=== PATIENT | male | born 1960 | race Caucasian/White ===

== ENCOUNTER 2020-07-23 13:59 | Emergency (ER) | payer OTHER ==
[~2020-07-23] VITALS: Ht 180.3 cm; Wt 59.0 kg
[2020-07-23 14:08] VITALS: BP 138/75
[2020-07-23 14:24] LABS: ABSOLUTE NEUTROPHILS 3.1 thou/uL (1.4-8.2); BASOPHILS 1.2 % (0.0-2.0); EOSINOPHILS 0.8 % (0.0-3.0); HEMATOCRIT 41.4 % (42.0-52.0); HEMOGLOBIN 13.9 gm/dL (14.0-18.0); MCH 31.6 pg (26.0-34.0); MCHC 33.7 g/dL (28.0-37.0); MCV 93.9 fL (80.0-100.0); MONOCYTES 5.2 % (1.0-8.0); PLATELET COUNT 167 thou/uL (150-400); POLYS 70.8 % (36.0-66.0); RBC 4.41 mil/uL (4.50-6.00); RDW 13.6 % (10.5-14.5); WBC 4.4 thou/uL (4.0-11.0)
[2020-07-23 14:28] LABS: AMP/METHAMP Negative (Negative); BARBITURATES Negative (Negative); BENZODIAZEPINES Negative (Negative); COCAINE Negative (Negative); METHADONE Negative (Negative); OPIATES Negative (Negative); PCP Negative (Negative)
[2020-07-23 14:36] LABS: ANION GAP 11 mmol/L (7-16); BUN 17 mg/dL (7-18); CHLORIDE 104 mmol/L (98-107); CO2 26 mmol/L (21-32); GLUCOSE 202 mg/dL (74-106); SODIUM 141 mmol/L (136-145)
[2020-07-23 14:42] LABS: DIRECT BILIRUBIN 0.1 mg/dL (<0.1-0.2); SALICYLATE < 2.8 mg/dL (2.8-20.0); SGOT 16 U/L (15-37); SGPT 16 U/L (30-65); TOTAL BILIRUBIN 0.4 mg/dL (0.2-1.0); TOTAL PROTEIN 7.7 g/dL (6.4-8.2)
[2020-07-24] MEDS ORDERED: REXULTI0.25 MG PO (10:22)
[2020-07-24] MEDS ORDERED: BENZTROPINE ME0.5 MG PO (10:23)
[2020-07-24] MEDS ORDERED: CLONAZEPAM 0.50.5 M1 PO (10:24)
[2020-07-24] MEDS ORDERED: XARELTO20 MG PO (10:25)
[2020-07-24] MEDS ORDERED: REMERON 30 MG T30 M1 PO (10:25)
[2020-07-24] MEDS ORDERED: LOVASTATIN 20 M20 MG PO (10:26)
[2020-07-24] MEDS ORDERED: LISINOPRIL2.5 MG PO (10:26)
--- NOTE | 2020-07-24 10:27 | NUR ---
SKYLAR (BROTHER) STATES APPLICATIONS PACKAGER FROM [facility] WAS GOING TO SEND OVER A MEDICATION LIST. SERGEIAURY PROVIDED MED LIST OVER THE PHONE THIS MORNING. TO THIS RN. WILL WAIT FOR CONFIRMATION LIST WELL.
[2020-07-24 17:38] VITALS: BP 119/70
--- NOTE | 2020-07-24 19:10 | NUR ---
PATIENT ADMITTED TO [facility] UNIT ROOM 518B VIA CART. PATIENT TRANSFERED TO BED AMB WITHOUT ASSISTANCE. PATIENT IN HOSPITAL GOWN. VS BP-109/77 P 47-50 T-98.2 O2 SAT 97%. PATIENT WAS IN ED FOR 27 HRS AND 40 MIN WAITING FOR COVID RESULTS. COVID NEGATIVE. PATIENT IS FROM HOME, LIVES WITH 90 YR OLD MOTHER. PATIENT BROUGHT TO ED FOR INCREASED ANXIETY, HALLUCINATION, DEPRESSION, NOT EATING AND SI STATING HE WISHED HE GOT COVID AND . IT WAS REPORTED TO ME THAT PT HAS NO PLAN FOR SUICIDE. PATIENT HAS A MEDICAL HX OF HTN, SCHIZOPHRENIA AND DM II. PATIENT SPEAKS CLEAR AND NO DIFFICULTIES ANSWERING QUESTIONS. PATIENT DENIES SI/HI AND HALLUCINATIONS STATES HAS NOT HAS HALLUCINATIONS X30 YEARS. PATIENT DENIES MEDICAL HX OF SCHIZOPHRENIA AND DM. PATIENT LS CLEAR, AMB ROUND AND SOFT, BS ACTIVE. NO EDEMA NOTED. NO C/O PAIN. PATIENT NOTED WITH OLD BRUISES TO LEGS AND ARMS. PATIENT HAS GLASSES ON. MEDICATION GIVEN WHOLE WITH H2O WITHOUT DIFFICULTY. REPORT GIVEN TO ONCOMING SHIFT.
[2020-07-24 19:40] VITALS: BP 97/64
--- NOTE | 2020-07-25 05:20 | NUR ---
Assumed care of pt @ 1900. Pt calm et cooperative this shift. Took medications whole without difficulty. Ambulates ad shante with steady gait. Isolated in room most of shift. Displays confusion as to why he is here et how he can get "downstairs". VSWNL. Health assessment with no abnormalities noted at present time. Denies SI/HI at present time. Currently sitting on couch in dayroom with eyes open. Will continue to monitor per protocol.
[2020-07-25 08:34] VITALS: BP 105/70
--- NOTE | 2020-07-25 13:01 | NUR ---
PATIENT CARE ASSUMED AT 0700 - AMBULATORY AND MAKES NEEDS KNOWN. WAS CONCERNED WTIH BELONGINGS THIS MORNING HE HAD COME IN WITH. STAFF LOCATED IN ER AND HAD BROUGHT TO UNIT. ALSO WANTED TO BE CERTAIN WAS ON HIS PSYCHE MEDICATIONS. PATIENT ANXIOUS AND NEEDS ALOT OF REASSURANCE. AMBULATES INDEPENDENTLY AND GAIT STEADY - DENIES ANY S/I - COMPLIANT WITH MEDICATIONS.
== END 2020-07-23 17:45 ==
LOC: ER 13:59 → SBH 17:45 → ER 07-24 17:39 → SBH 07-24 17:39
PROVIDERS: Nurse Practitioner
DX: R45.851 Suicidal ideations (principal); I10 Essential (primary) hypertension; F41.0 Panic disorder [episodic paroxysmal anxiety]; Z86.718 Personal history of other venous thrombosis and embolism; Z86.711 Personal history of pulmonary embolism
CPT/HCPCS: 10880

== ENCOUNTER 2020-07-24 17:39 | Inpatient (IN) | payer OTHER ==
[~2020-07-24] VITALS: Ht 172.7 cm; Wt 62.1 kg
[~2020-07-24 17:39] MED LIST: BENZTROPINE ME0.5 MG PO; CLONAZEPAM 0.50.5 M1 PO; LISINOPRIL2.5 MG PO; LOVASTATIN 20 M20 MG PO; REMERON 30 MG T30 M1 PO; REXULTI0.25 MG PO; XARELTO20 MG PO
[2020-07-25 19:07] VITALS: BP 118/71
[2020-07-26 02:06] LABS: HIV ANTIBODY Non Reactive (Non Reactive)
--- NOTE | 2020-07-26 05:00 | NUR ---
Assumed care of pt @ 1900. Pt calm et cooperative this shift. Took medications whole without difficulty. Ambulates the halls ad shante with steady gait. VSWNL. Health assessment with no abnormalities noted at present time. Denies SI/HI at present time. Socialized with peers in dayroom until HS. Currently resting in bed with eyes open. Will continue to monitor per protocol.
[2020-07-26 07:10] VITALS: BP 147/101
--- NOTE | 2020-07-26 11:14 | NUR ---
PATIENT CARE ASSUMED AT 0700 - UP AT CHANGE OF SHIFT. ANXIOUS AND FIXATED ON MEDICATIONS AND RECEIVING ADEQUATE DOSAGES. DENIES ANY S/I - RATES DEPRESSION AND AXNIETY AT 03/30 - GOOD APPETITE. MAKES NEEDS KNOWN. AMBULATORY AND STEADY ON FEET.
[2020-07-26 19:41] VITALS: BP 95/60
--- NOTE | 2020-07-27 03:39 | NUR ---
Assumed care of pt @ 1900. Pt calm et cooperative this shift. Took medications whole without difficulty. Ambulates the halls ad shante with steady gait. VSWNL. Health assessment with no abnormalities noted at present time. Denies SI/HI at present time. Continues to wake from sleep cycle around 0400 for past few nocs. Becomes slightly agitated when unable to go back to sleep. Socializes with peers in dayroom until HS but tends to retire early around 0800. Currently resting in bed with eyes open. Will continue to monitor per protocol.
[2020-07-27 07:28] VITALS: BP 92/58
--- NOTE | 2020-07-27 09:30 | NUR ---
Assumed care for patient at 0700. out in dayroom. Pleasant and cooperative. eating breakfast in day room. Good appetite. Cooperative with assessments. Lungs sounds clear. No cough. Took medications without difficulty. Heart rate regular. BP at 92/58. Lisinopril held. Abdomen soft. Denies pain or discomfort. Euthymic. No agitation observed. Gait steady. Oriented.
--- NOTE | 2020-07-27 11:48 | H ---
[facility] [place] [address] HISTORY AND PHYSICAL Name: LYNN FOSS Room #: 518B-B ADM IN M.R.#: [id number] Admission: 07/24/20 Attend Phys: Kali Solorio DO Discharge: Date of : 56 Report #: [id number] THIS REPORT FOR: cc: ROSALIE - No family physician/PCP FAM - No family physician/PCP Kali Solorio DO ~ CC: Kali Solorio [facility] physician/PCP DATE OF SERVICE: 07/25/2020 INPATIENT PSYCHIATRIC EVALUATION ATTENDING PSYCHIATRIST: Kali Solorio DO. BALLPOINT PEN CARTRIDGE TESTER: Sonu Menchaca MD. REASON FOR ADMISSION: Alleged suicidal ideation. SOURCES OF INFORMATION: Interview with the patient, interview with his brother, Jesus Manuel. It should be noted Jesus Manuel's , Masha Foss was interested in remaining the [facility]. Her number is [phone]. We have not gotten records from [facility] where the patient was referred. HISTORY OF PRESENT ILLNESS: This is a 60-year-old male brought to the ED by his brother, Jesus Manuel. The patient had suicidal thoughts "ran across in his mind" prior to arrival, but did not formulate a plan to carry it out self-harm, denies ever having such thoughts before. Denies any symptoms of pain. Apparently, he had been in an appointment at [facility] on Tuesday and made the comment that he is just tired of doing this. About 2 weeks ago, he was seen in [facility] Emergency Room and discharged. The patient lives at his mother's home. His mother is 98 years old. His brother, Jesus Manuel, gives a history that around a month ago he was given a long-acting injection, but there has not been perceived cognitive improvement from that and the worsening continued ____ he did not know the name of it. The patient's social welfare research worker at [facility] is Marie Schuler. He also made comment on Tuesday that he wants things over, so it was a soft suicidal reference. The patient has a history of paranoid schizophrenia and his ____ PCR was negative. Serum alcohol was less than 10. Labs from the ER, sodium 141, potassium 4.0, chloride 104, bicarbonate 26, anion gap 11, BUN 17, creatinine 1.0, estimated GFR 76, glucose 202, calcium 9.0, total bilirubin 0.4, direct bilirubin 0.1, AST 16, ALT 16, alkaline phosphatase 75, total protein 7.7, albumin 4.0. White count 4.4, H and H 13.9 and 41.4, platelet count 167. UDS negative. Salicylate is negative. Acetaminophen negative, interestingly was negative for benzodiazepines and is prescribed as [address] [address] HISTORY AND PHYSICAL Name: LYNN FOSS Room #: 518B-B ADM IN M.R.#: [id number] Admission: 07/24/20 Attend Phys: Kali Solorio DO Discharge: Date of : 56 Report #: [id number]. ADDITIONAL HISTORY: [facility] Mental Status Examination was 19/30. Geriatric Depression scale was +3/15, so not showing significant clinical depression. The patient reported psychiatric history of long-standing schizophrenia in the 1980s. He does not remember why he was transported to the ER, interestingly. He reports he is medication compliant. He likes helping his mother at home. She actually takes care of his medication. Reports he becomes some irritable at times with his mother when she asks him to do things around the house. He has lived for 60 years with her, reports anxiety /. Denies panic attacks. Denies depression. Denies SI. Denies HI. Reports auditory hallucinations of having conversations. Denies command hallucinations. He denies hearing voices today when I saw him. [place] [facility] PAST MEDICAL HISTORY: Hypertension, hyperlipidemia, history of four blood clots in bilateral lower extremities, history of PE. Mother has hyperlipidemia. Dad in his 60s with lung cancer; 2 brothers, 1 at age 70, had ____ diabetes, heart condition. Another brother, obesity, diabetes. The patient had psychiatric inpatient treatment one time, [id number] range. States he gets medications through [facility]. He has been on long-term injectable, does not remember which medications. SOCIAL HISTORY: Grew up in [place], [place]. Lived with his parents. Denies abuse, states reportedly he has not been working for years. High school graduate. Denies marriage. No children. Denies service. 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 Denies any other issues. Alcohol, drank once in a job and blacked out and then he gave it up. Illicit substances, marijuana use in his 20s. VITAL SIGNS: Today, temperature 98.1, pulse 104, BP 105/70, O2 sat 96%. MENTAL STATUS EXAMINATION: This is a well-developed, frail, somewhat ill-appearing having a marked lumbar lordosis. somewhat disheveled. Attention limited. Concentration limited. Speech slow, soft. Thought process linear and limited. Thought content, rather poverty of thought. No psychomotor agitation. No psychomotor retardation. Denied SI or HI. Some helplessness, some hopelessness. Memory known to be impaired. Insight impaired, judgment impaired. Fund of knowledge below average. mood/affect- restricted, congruent FORMULATION: A 60-year-old male who lives for decades with his mother and helped by his brother, referred by [facility], I think this is more of a self-care failure concerning for acute suicidality. PLAN: Evaluate, stabilize, obtain collateral. I went ahead and ordered B12, vitamin D, syphilis antibody, HIV, noncontrast head CT. We will see if there [address] [address] [place] [address] HISTORY AND PHYSICAL Name: LYNN FOSS Room #: 518B-B ADM IN M.R.#: [id number] Admission: 07/24/20 Attend Phys: Kali Solorio DO Discharge: Date of : 56 Report #: [id number] are any abnormalities in lab results and observe the patient over the next several days. He will likely need long-term care placement. We will see if we can appoint a DPOA for such placement. Major Neurocognitive Disorder with Behavioral Disturbance- improving Schizophrenia Plan: admitted to geriatric psychiatry. Increase Remeron to 22.5 mg po qhs for depression appetitie Hospitalist consulted evaluate and stabilize sounds like Invega Susteena given not too far back, but unfavorable respons for Mother/Brother Call to family Time spent on interview, review of records, coordination of care 60 mintues at least . <ELECTRONICALLY SIGNED> By: Kali Solorio DO 07/27/20 1148 [id number] 1602 Kali Solorio, /nt
[2020-07-27 19:11] VITALS: BP 154/84
--- NOTE | 2020-07-28 02:09 | NUR ---
ASSUMED CARE FROM DAY SHIFT PT RESTING IN BRD NO CONCERNS VOICED AT THIS TIME, PO MEDICATION TAKEN WIHTOUT DIFF. THEN AMBULATING AROUND HALLWAY GAIT STEADY. BD WHEN TO SLEEP AND SO FAR PT ID RESTING QUIETLY IN BED . WILL CONINTUE WITH PRESENT PLSN OF CARE.
[2020-07-28 07:12] VITALS: BP 138/89
[2020-07-28 16:06] LABS: SYPHILIS AB Non Reactive (Non Reactive)
--- NOTE | 2020-07-28 17:11 | NUR ---
ASSUMED PATIENT CARE AT 0700. A/O X3. PLEASANT. ENJOYED ACTIVTY IN LIVING ROOM. NO DISDRESS NOTED. PROGRESSING TOWARDS POC GOALS.
[2020-07-28 19:56] VITALS: BP 102/59
--- NOTE | 2020-07-29 00:27 | NUR ---
PATIENT HAS BEEN IN ROOM ALL EVENING. HIS ASSESSMENT WAS WNL. PATIENT DENIES PAIN. DENIES SI/HI/AVH. PATIENT HAS BEEN CALM AND COMPLACENT. PATIENT TOOK HIS HS MEDS WHOLE. PATIENT IS LOW FALL RISK AND IS STEADY WHEN WALKING. PATIENT IS A/0X2. PATIENT DID COME OUT TO THE NURSE STATION AT 2330 LOOKING FOR A WOMAN THAT WAS ON THE UNIT EARLIER, HE SAID, TO TALK WITH HIM ABOUT HIS TAXABLE INCOME. EXPLAINED TO PATIENT THAT THERE'S NO WOMAN HERE NOW TO DISCUSS TAXES WITH AND REMINDED HIM OF THE TIME. PATIENT STATES HE WILL WAIT TILL AFTER BREAKFAST TOMORROW AND SPEAK WITH THE WOMAN THEN. PATIENT WENT BACK TO BED AND IS SLEEPING. BED IN LOW POSITION. ROUTINE ROUNDS TO ASSESS SAFETY AND STATUS OF PATIENT.
--- NOTE | 2020-07-29 05:17 | NUR ---
PATIENT HAS BEEN UP 4 MORE TIMES TONIGHT TO CHECK THE TIME AND MAKE SURE HE DOESN'T MISS THE "WOMAN" WHO HE WILL GIVE HIS TAXABLE TIME TOO. REASSURED HIM THAT IF SHE WAS COMING IT WOULD BE AFTER BREAKFAST AND WE WOULD MAKE SURE SHE FOUND HIM. HOWEVER, DID ALSO TELL HIM THAT I KNOW OF NO SUCH WOMAN. PATIENT WAS GIVEN ZOFRAN 4MG AT ONE POINT TO HELP HIS STOMACH RELAX AND GET SOME SLEEP. PATIENT SLEPT FOR A COUPLE OF HOURS AND WAS BACK UP. PATIENT WOULD GO BACK TO BED AFTER CHECKING FOR THE TIME. DENIES SI/HI/AVH AND PAIN. CONTINUING TO MONITOR.
[2020-07-29 07:28] VITALS: BP 92/61
[2020-07-29 08:00] VITALS: BP 92/61
--- NOTE | 2020-07-29 08:21 | NUR ---
PT SITTING OUT IN DINING ROOM. PT HAS SOME JERKING MOVEMENTS TO LEGS BILATERLY. ASKED PT IF THOSE WERE VOLUNTARY OR INVOLUNTARY, HE DIDN'T ANSWER. PT TOOK MEDS WITHOUT ANY ISSUES. PT ALLOWED THIS LINUX SYSTEM ADMIN TO ADM B12 SHOT. PT NOT VERY SOCIAL. PT KEEPS TO HIMSELF. PT DOES GO TO GROUP AND STAYS IN DINING ROOM TO EAT AND SIT AND WATCH TV.
--- NOTE | 2020-07-29 17:20 | NUR ---
PT HAD A GOOD DAY TODAY. NO COMPLAINTS OR ISSUES AT THIS TIME. PT PARTICIPATING IN GROUP AND TAKING MEDS WITHOUT ANY ISSUES.
[2020-07-29 19:32] VITALS: BP 135/70
[2020-07-29 20:20] VITALS: BP 135/70
--- NOTE | 2020-07-29 23:06 | NUR ---
PATIENT HAS BEEN IN BED SINCE BEGINNING OF SHIFT. ON ASSESSMENT HE IS PLEASANT AND COOPERATIVE. WHEN ASKED, HE STATES HE HAD A GOOD DAY. HE DENIES PAIN, SI/HI/AVH. PATIENT TOOK HIS MEDS WHOLE WITH WATER. NO DELUSIONS SO FAR TONIGHT. BED IN LOW POSITION AND ROUTINE ROUNDS TO ASSESS SAFETY AND STATUS OF PATIENT.
[2020-07-30 05:51] LABS: HEMATOCRIT 40.8 % (42.0-52.0); HEMOGLOBIN 13.4 gm/dL (14.0-18.0); MCH 31.1 pg (26.0-34.0); MCHC 32.8 g/dL (28.0-37.0); MCV 94.7 fL (80.0-100.0); RBC 4.31 mil/uL (4.50-6.00); RDW 13.8 % (10.5-14.5); WBC 5.1 thou/uL (4.0-11.0)
[2020-07-30 05:56] LABS: CALCIUM 8.8 mg/dL (8.5-10.1); CREATININE 1.1 mg/dL (0.7-1.3); POTASSIUM 3.9 mmol/L (3.5-5.1)
[2020-07-30 07:29] VITALS: BP 140/82
--- NOTE | 2020-07-30 09:36 | NUR ---
ASSUMED CARE OF PATIENT AT 0700. UP IN DAYROOM. ALERT AND ORIENTED x4. DENIES SI/HI AND AVH. PLEASANT AND COOPERATIVE. EATING MEALS IN DAYROOM. MOVING LEGS ABOUT RESTLESSLY BUT SAYS IS HAVING A GOOD DAY. DENIES PAIN OR ANY DISCOMFORT. BREATH SOUNDS CLEAR, ABDOMEN SOFT. BOWEL SOUNDS PRESENT ALL QUADRANTS. NO ANKLE EDEMA. ANSWERS QUESTIONS APPROPRIATELY. TOOK MEDICATIONS BUT SAYS IS ON TOO MUCH MEDICATION. NO AGITATION OBSERVED. AMBULATORY, GAIT STEADY. DENIES DIZZINESS. PARTICIPATING IN UNIT PATIENT ACTIVITIES. IS NOT INTERACTING WITH PEERS. DOES NOT INITIATE CONVERSATION ON OWN BUT IS PLEASANT WHEN APPROACHED.
[2020-07-30 18:59] VITALS: BP 107/67
[2020-07-30 22:00] VITALS: BP 107/67
--- NOTE | 2020-07-31 02:49 | NUR ---
Assumed care of patient this pm shift. Patient in good spirits, calm and cooperative, medication adherent. Patient spent most of the night in his room coming out occasionally to check the time. Patient denies pain. Patient denies hi/si. Patient takes medications whole with thin fluids. Patient is alert and oriented x2. Patients assessment shows no signs of acute distress. Patient is ambulatory and not considered a falls risk. Patient is continent of bowel and bladder. Patient did not voice any new concerns this shift. We will continue to monitor per hospital policy.
[2020-07-31 07:38] VITALS: BP 97/62
--- NOTE | 2020-07-31 12:13 | NUR ---
OVERALL MOOD/AFFECT REMAINS BLUNTED HOWEVER IS NOTED TO SLIGHTLY MORE VERBAL AND DID INITIATE SPONTANEOUS CONVERSATION WITH A MALE PEER AND VISITED IN DAYROOM WITH HIM FOR 10-15 MINUTES. DENIES C/O PAIN/DISCOMFORT. IS NOTED TO HAVE INVOLANTARY GROSS TREMOR OF LOWER EXTREMETIES APPEARING WORSE WHEN STANDING THEN WHEN SEATED AT COUCH. DID REQUEST SPECIAL MEAL FOR PM STATING "LOOKING FORWARD TO GAME" VISIBLE IN DAYROOM FOR MAJORITY OF AM-ATTENDING SCHEDULED GROUPS. APPETITE FAIR. DENIES SI/SH/HI
--- NOTE | 2020-07-31 17:10 | NUR ---
SW complete DPOA with Pt and place copy in the record
--- NOTE | 2020-07-31 17:10 | NUR ---
KRISTAL sent referrals to the following: [facility] [phone] [facility] [phone] [facility] [phone] [facility]
[2020-07-31 19:33] VITALS: BP 114/70
[2020-07-31 21:51] VITALS: BP 114/70
--- NOTE | 2020-08-01 04:35 | NUR ---
Assumed care of patient this pm shift. Patient in good spirits most of the night. Around 4 am patient came to nurses station with anxiety and stated that he could not remember anything. After talking with RN patient appeared to find some relief and went back to bed. Patient takes medications whole and is medication adherent. Patient denies hi/si. Patient denies pain. Patients affect is flat. Patients assessment shows no signs of acute distress. Patient is not considered a falls risk. Gait is steady and even. Patient gets up at intervals and checks the clock. We will continue to monitor per hospital policy.
[2020-08-01 08:00] VITALS: BP 156/92
--- NOTE | 2020-08-01 08:18 | NUR ---
RT Progress Note- Bijan has been fairly present in the milieu and recreation groups though he remains guarded during social interactions. He is often reluctant to interact during groups of socialization. He is unwilling to speak about or provide insight to his illness or progress towards developing coping skills.
--- NOTE | 2020-08-01 09:25 | NUR ---
Assumed care 0700. Has no complaints. Somber affect. Does not initiate conversation with peers. Attended 0900 group with interest.
--- NOTE | 2020-08-01 13:00 | NUR ---
KRISTAL sent referrals to the following: [facility] [phone] [facility] [phone] [facility] [phone] [facility] [phone]
--- NOTE | 2020-08-01 15:48 | NUR ---
In 1:1 interaction patient revealed he didn't like the groups, that they were a waste of time. He goes because he is required to attend the groups. Patient denies hallucinations-auditory and visual. He denies SI/HI. He knew the date and the name of the building we are in. He did not know it was Tuesday or the year. His eyes do not focus together. He had no concerns or goals. He does not know exactly why he is here. He admits to living with his elderly mother and is considering living elsewhere but does not know where or what kind of a place. Physiologically he does not present with any overt concerns. He was offered clippers to trim his nails (with supervision.) He declined. He was encouraged to take a shower and declined. He is entranced with Television. He sits by himself and does not initiate conversation with peers.
--- NOTE | 2020-08-01 17:37 | NUR ---
Refused to eat dinner. Consumed Ensure Alive 237 ml plus 1 small tub of ice cream. Initially did not want to eat due to having just brushed his teeth though consumed the above.
--- NOTE | 2020-08-01 18:03 | NUR ---
Took Ensure Alive in place of [id number] cc.
[2020-08-01 19:49] VITALS: BP 119/98
--- NOTE | 2020-08-02 03:49 | NUR ---
08-01-20 CARE TRANSFERRED 1899 OBSERVED PT WALKING IN HALLWAY. 1914 PT SUPINE IN BED RESTING WITH EYES CLOSED PT EASILY AWAKEN TO VOICE. PT AAOX2, VSS, RR EVEN AND NONLABORED ON RA. PT DENIES ANY PAIN OR SI/HI. PT REQUESTED HS SNACK AND ATE 100%. DURING MEDICATION ADMIN PT HAD NO DIFFICULTIES TAKING MEDICATION WHOLE WITH WATER. LATER NOTED PT LEFT SIDE LYING IN BED RESTING WITH EYES CLOSED. NO S/S OF ACUTE DISTRESS NOTED, PT WILL CONTINUE TO BE MONITOR PER [facility] PROTOCOL.
[2020-08-02 08:15] VITALS: BP 97/60
--- NOTE | 2020-08-02 09:00 | NUR ---
Assumed care 0700. Pleasant, cooperative, jiggling his right leg. Denies being nervious/anxious yet says he's that way all the time. Denies SI/HI, SH/VH.
--- NOTE | 2020-08-02 15:35 | NUR ---
Attended 1300 [address]. group. Earlier took shower and shampoo independently in the spa shower room. Clothes washed. Denies pain or other complaints. He is withdrawn, watches TV, does not interact with peers. Has no concerns or goals.
[2020-08-02 20:09] VITALS: BP 107/64
[2020-08-02 20:40] VITALS: BP 107/64
--- NOTE | 2020-08-03 01:00 | NUR ---
PATIENT HAS BEEN IN BED AND IN HIS ROOM TONIGHT. HE DID NOT WANT TO COME OUT FOR HS SNACKS. HE IS CALM AND COOPERATIVE. HE DENIES PAIN, SI/HI/AVH. HE STATES HE HAD AN OK DAY AND HAS NOTHING THAT IS BOTHERING HIM. HE HAS AWOKEN 3 TIMES TONIGHT AND COMES OUT TO NURSE STATION TO CHECK TIME AND THEN GOES BACK TO BED AND FALLS ASLEEP. HE STILL DENIES PAIN. MAY NEED SOMETHING TO HELP SLEEP AT NIGHT OR LESS TIME IN BED. NOT SURE HOW MUCH HE IS IN BED DURING DAY. ROUTINE ROUNDS TO ASSESS FOR STATUS AND SAFETY OF PATIENT. BED IN LOW POSITION. WILL CONTINUE TO MONITOR.
--- NOTE | 2020-08-03 05:26 | NUR ---
PATIENT WAS UP WALKING TO THE NURSE STATION AND CHECKING THE TIME 7 TIMES LAST NIGHT. HE WOULD GO BACK TO BED. WHEN I WOULD ASK HIM IF HE WOULD LIKE SOMETHING TO SLEEP OR IF SOMETHING WAS ON HIS MIND, HE WOULD GET IRRITABLE AND SNAP AT ME AND REPLY "NO, I DON'T NEED ANYTHING! I AM FINE!" HE WOULD ALWAYS GO BACK TO SLEEP VERY QUICKLY UNTIL HE AWAKENED THE NEXT TIME.
[2020-08-03 08:56] VITALS: BP 100/73
--- NOTE | 2020-08-03 14:56 | NUR ---
DYSPHORIC MOOD THIS AM-ABRUPT RESPONSES ANGRY FACIAL EXPRESSION DURING AM ASSESSMENT/1;1 WHEN ASKED ABOUT MOOD STATES "FINE-I DON'T WANT TO TALK-I'M OK" VISIBLE IN DAYROOM BUT SITS APART FROM PEERS AND HAS LITTLE TO NO INTERACTION WITH OTHERS. APPEARS UNKEMPT AND INITIALLY REFUSED WHEN OFFERED PARTIAL BATH AND SHAVE BUT LATER APPROACHED NURSE STATING "I'LL SHAVE NOW"GAIT IS STEADY WITHOUT ASSISTIVE DEVICE. IS NOTED TO HAVE GROSS LOWER EXTREMETY TREMOR WHICH APPEARS TO INCREASE IN SEVERITY WITH PURPOSEFUL ACTIVITY. DID DENY SI/SH. APPETITE FAIR-DESCRIBES SLEEP "OK I WOKE UP A COUPLE OF TIMES"
[2020-08-03 19:28] VITALS: BP 97/63
[2020-08-03 20:40] VITALS: BP 97/63
--- NOTE | 2020-08-03 23:42 | NUR ---
PATIENT HAS BEEN IN BED SINCE BEGINNING OF SHIFT. HE HAS BEEN CALM AND COOPERATIVE. HE HAS BEEN TALKATIVE TONIGHT AND INITIATING CONVERSATION. HE SPOKE WITH ME ABOUT HOW THE DAY NURSE, GAUTAM SHAVED HIM AND DID A GOOD JOB. HE STATES HE IS NOT HAVING ANY PAIN. HE DENIES SI/HI/AVH. HE DID NOT HAVE BM TODAY. GAVE PATIENT ZOFRAN 4MG PO TO SEE IF THIS WOULD HELP HIM SLEEP TONIGHT. PATIENT REFUSED HS SNACK. HE STATES HE FEELS HE IS DOING BETTER BECAUSE HE IS GAINING WEIGHT. HE STATES HE HAS A GOOD APPETITE AND IS FEELING BETTER SINCE HE PUT MORE WEIGHT ON. PATIENT BEGAN COMING TO CHECK THE TIME AT THE NURSE STATION AT 2215. HE HAS BEEN OUT OF ROOM DOING THIS 3X ALREADY. HE DOESN'T WANT TO STAY UP. HE GOES BACK TO HIS ROOM AND LAYS DOWN AND FALLS BACK TO SLEEP. HE SAID THIS LAST TIME THAT HE CAN'T BELIEVE IT WAS ONLY 2330. DISCUSSED WITH HIM TO TRY NOT TO SLEEP DURING THE DAY SO HE CAN SLEEP BETTER AT NIGHT. FEEL PATIENT COULD BENEFIT WITH A SLEEP AID. PATIENT HAS NOT BEEN IRRITABLE. HE IS A/0X 2-3. ROUTINE ROUNDS TO ASSESS SAFETY AND STATUS OF PATIENT.
--- NOTE | 2020-08-04 04:13 | NUR ---
PATIENT HAS BEEN UP SEVERAL TIMES TONITE. HE WALKS QUICKLY TO THE NURSE STATION AND CHECKS THE CLOCK AND WALKS BACK TO ROOM. SOMETIMES 3 TO 4 TIMES AN HOUR. THEN HE GOES BACK TO BED AND FALLS ASLEEP. PATIENT REFUSING ANY MEDS FOR SLEEP TONIGHT. HE DOES STATE THAT HE WOULDN'T MIND IF THE DOCTOR WOULD PRESCRIBE SOMETHING FOR HIM TO SLEEP FOR TOMORROW NIGHT AND FORWARD. PATIENT HAS BEEN PLEASANT AND NOT IRRITABLE TONIGHT. PATIENT DENIES PAIN AND STATES HE DOESN'T HAVE ANYTHING ON HIS MIND KEEPING HIM AWAKE. CONTINUING TO MONITOR.
[2020-08-04 07:33] VITALS: BP 129/90
--- NOTE | 2020-08-04 10:38 | NUR ---
SLIGHT INCREASE IN SPONTANEOUS CONVERSATION AND EXPRESSION SO FAR THIS SHIFT. APPEARS BETTER GROOMED COMPAIRED TO PREVIOUS DAYS HAIR COMBED AND FRESHLY SHAVED. GAIT STEADY WITHOUT ASSISTIVE DEVICES. APPETITE GOOD. AFFECT REMAINS CONSTRICTED.-VISIBLE IN DAYROOM ATTENDING SCHEDULED ACTIVITIES AND WATCHES TV DURING FREE TIME-MINIMAL INTERACTION WITH PEERS. DENIES C/O PAIN/DISCOMFORT. DENIES SI/SH/HI.OFFERS VAGUE RESPONSES WHEN QUESTIONED ABOUT MOOD/DEPRESSIVE SYMPTOMS STATING 'OK,FINE OR ABOUT THE SAME"
--- NOTE | 2020-08-04 17:19 | NUR ---
KRISTAL spoke with Pt's [facility] case manger, Marie Schuler [phone]. SW gave update on Pt and informed recommendation of memory care. Marie stated that [facility] has some residential units and she will check to see if they have any avaliable for the Pt and call SW back.
[2020-08-04 19:24] VITALS: BP 127/80
--- NOTE | 2020-08-05 02:24 | NUR ---
08-04-20 CARE TRANSFERRED 1899 OBSERVED PT WALKING IN HALLWAY. 2030 PT AAOX3, VSS, RR EVEN AND NONLABORED ON RA. PT REPORTS HE IS FEELING ANXIOUS ABOUT THE PLAN TO GO TO A FACILITY VS. HOME, PT REPORTED HE DOES NOT WANT TO TALK ABOUT IT ANY FURTHER. PT DENIES ANY PAIN OR SI/HI. ASSISTED PT WILL CALLING HIS BROTHER. DURING MEDICATION ADMIN PT HAD NO DIFFICULTIES AND REPORTED THAT HE HAD RETURNED PHONE TO NURSING STATION. LATER NOTED PT BECAME CONFUSED AND CAME TO NURSING STATION LOOKING FOR A BATHROOM, PT WAS REORIENTED THAT BATHROOM WAS IN HIS ROOM AND PT MOVED QUICKLY BACK TO ROOM. WHEN PT WAS ASKED IF HE IS OK, HE REPORTED HE JUST FORGOT FOR A MOMENT. LATER NOTED PT LEFT SIDE LYING RESTING IN BED WITH EYES CLOSED. ZERO S/S OF ACUTE DISTRESS NOTED, PT WILL CONTINUE TO BE MONITOR PER [facility] PROTOCOL.
[2020-08-05 05:59] VITALS: BP 127/80
[2020-08-05 07:32] VITALS: BP 120/79
--- NOTE | 2020-08-05 10:42 | NUR ---
KRISTAL and Dr. Sam had a phone call with Pt's brother/DPOA, Jesus Manuel. Jesus Manuel stated that he would like Stepan to return home and felt Stepan was doing better since admission. Dr. Marcos informed Jesus Manuel of the recommendation for LTC for the Pt. Jesus Manuel stated he undertstood but [place] the Pt would be okay at home. KRISTAL informed Jesus Manuel that Pt will need to continue outpt services with [facility]. KRISTAL also informed that [facility] does have housing in the community that Pt may qualify for, so if the become intrested in placment again to reach out to the [facility] shelter case manager or to any [facility] directly. Jesus Manuel was concerned about the Pt's psychiatrist and felt Pt needs a new psychiatrist. KRISTAL encouraged JesusM anuel to contact [facility] to find a provider but until he is able to find a new provider he will need to keep the Pt with same psychiatrist. Pt will be discharged 08/05/2020 @ 3:30pm. Jesus Manuel will transport the Pt
--- NOTE | 2020-08-05 11:11 | NUR ---
KRISTAL contacted Pt's security program manager, Marie, and informed about Pt's discharge and conversation with Pt's brother Jesus Manuel. KRISTAL informed that the Pt will need a follow up psy appointment. Also that the Pt may benifit from some in home services. KRISTAL gave Marie [place] and [place] based services
--- NOTE | 2020-08-05 11:21 | NUR ---
Brayden scheduled a follow up psychiatric appointment for Pt with [facility]. August 14 @ 10:45am with Kaley Mcelroy
--- NOTE | 2020-08-05 12:30 | NUR ---
PATIENT WAS UP, AND OUT, SITTING IN DAYROOM WHEN CARE ASSUMED AT 0700 HOURS. PATIENT IS ALERT, AND ORIENTED X 2-3, FORGETFUL AT TIMES. PATIENT TOOK ALL MEDICATION WHOLE WITHOUT DIFFICULTY. PATIENT IS EATING MEALS, AND DRINKING FLUID WELL. PATIENT DENIES SUICIDAL/HOMICIDAL IDEATION. HE DENIES DEPRESSION, RATED ANXIETY 3 OR 4/10, STATES HE IS ANXIOUS ABOUT DISCHARGE. PATIENT REPORTS LAST BOWEL MOVEMENT WAS ON 08/04/20. AFFECT IS FLAT/BLUNTED, MOOD IS EUTHYMIC. NO SIGN OF ACUTE DISTRESS NOTED AT THIS TIME, WILL MONITOR FOR SAFETY.
[2020-08-05] MEDS ORDERED: REMERON 30 MG T30 M1 PO (12:58)
[2020-08-05] MEDS ORDERED: BENZTROPINE MES1 MG PO (12:59)
[2020-08-05] MEDS ORDERED: ZYPREXA 5 MG TAB5 M1 PO (12:59)
[2020-08-05] MEDS ORDERED: SENNA-TIME S T1 EACH PO (13:00)
[2020-08-05] MEDS ORDERED: B12INJ PO (13:01)
[2020-08-05] MEDS ORDERED: VITAMIN D325 MC1 PO (13:01)
[2020-08-05 13:56] VITALS: BP 120/79
[2020-08-05 15:54] VITALS: BP 120/79
== END 2020-08-05 15:15 | disposition home or self-care (01) | DRG 884 ==
LOC: SBH 17:39
PROVIDERS: Internal Medicine; ADMIT Psychiatry & Neurology Psychiatry; ATTEND Psychiatry & Neurology Psychiatry
DX: F01.51 Vascular dementia, unspecified severity, with behavioral disturbance (principal); E43 Unspecified severe protein-calorie malnutrition; R45.851 Suicidal ideations; F20.9 Schizophrenia, unspecified; I10 Essential (primary) hypertension; E78.5 Hyperlipidemia, unspecified; E66.9 Obesity, unspecified; E11.9 Type 2 diabetes mellitus without complications; R62.7 Adult failure to thrive; T50.905A Adverse effect of unspecified drugs, medicaments and biological substances, initial encounter; Z86.711 Personal history of pulmonary embolism; Z85.118 Personal history of other malignant neoplasm of bronchus and lung; Z68.20 Body mass index [BMI] 20.0-20.9, adult; Z86.718 Personal history of other venous thrombosis and embolism; Y92.89 Other specified places as the place of occurrence of the external cause
CPT/HCPCS: 10880

== ENCOUNTER 2020-11-16 10:20 | Emergency (ER) | payer OTHER ==
[~2020-11-16] VITALS: Ht 180.3 cm; Wt 54.4 kg
[~2020-11-16 10:20] MED LIST changes: +B12INJ PO; +BENZTROPINE MES1 MG PO; +SENNA-TIME S T1 EACH PO; +VITAMIN D325 MC1 PO; +ZYPREXA 5 MG TAB5 M1 PO
[2020-11-16] MEDS ORDERED: BENZTROPINE MESY2 MG PO (10:51)
[2020-11-16 10:54] LABS: ABSOLUTE NEUTROPHILS 2.2 thou/uL (1.4-8.2); BASOPHILS 1.9 % (0.0-2.0); EOSINOPHILS 0.7 % (0.0-3.0); HEMATOCRIT 37.2 % (42.0-52.0); HEMOGLOBIN 12.6 gm/dL (14.0-18.0); LYMPHOCYTES 27.2 % (24.0-44.0); MCH 31.1 pg (26.0-34.0); MCHC 33.8 g/dL (28.0-37.0); MCV 92.1 fL (80.0-100.0); MONOCYTES 5.3 % (1.0-8.0); PLATELET COUNT 204 thou/uL (150-400); POLYS 64.9 % (36.0-66.0); RBC 4.04 mil/uL (4.50-6.00); RDW 13.9 % (10.5-14.5); WBC 3.3 thou/uL (4.0-11.0)
[2020-11-16 10:55] LABS: URINE BILIRUBIN NEGATIVE (Negative); URINE BLOOD NEGATIVE (Negative); URINE CLARITY CLEAR; URINE COLOR YELLOW; URINE GLUCOSE-RANDOM* NEGATIVE (Negative); URINE KETONES NEGATIVE (Negative); URINE LEUKOCYTES-REFLEX NEGATIVE (Negative); URINE NITRITE-REFLEX NEGATIVE (Negative); URINE PROTEIN (DIPSTICK) NEGATIVE (Negative); URINE UROBILINOGEN 0.2 E.U./dl (0.2-1.0)
[2020-11-16] MEDS ORDERED: LISINOPRIL30 MG PO (10:58)
[2020-11-16] MEDS ORDERED: OLANZAPINE ODT5 MG PO (10:59)
[2020-11-16] MEDS ORDERED: REMERON 30 MG T30 M1 PO (11:00)
[2020-11-16] MEDS ORDERED: OLANZAPINE5 M1 PO (11:00)
[2020-11-16 11:06] LABS: CALCIUM 9.2 mg/dL (8.5-10.1); POTASSIUM 3.9 mmol/L (3.5-5.1)
[2020-11-16 11:14] LABS: ALBUMIN 3.6 g/dL (3.4-5.0); TOTAL BILIRUBIN 0.5 mg/dL (0.2-1.0); TOTAL PROTEIN 6.8 g/dL (6.4-8.2)
[2020-11-16] MEDS ORDERED: DULCOLAX10 MG RECTAL (13:20)
[2020-11-16] MEDS ORDERED: SENNA-DOCUSATE1 EAC1 PO (13:20)
[2020-11-16 13:50] VITALS: BP 133/60
--- NOTE | 2020-11-17 07:16 | EKG ---
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 11/17/20 0716 [id number] Wu Ac MD, FACC /EPI
== END 2020-11-16 13:49 | disposition home or self-care (01) ==
LOC: ER 10:20
PROVIDERS: Emergency Medicine
DX: K59.00 Constipation, unspecified (principal); R45.89 Other symptoms and signs involving emotional state; Z79.899 Other long term (current) drug therapy